=== PATIENT | female | born 1975 | race Caucasian/White ===

== ENCOUNTER 2018-04-30 11:04 | Inpatient (IN) | payer BC, OTHER ==
[2018-04-30] VITALS (25 sets, daily range): BP systolic 100–141; BP diastolic 56–83; PULSE 78–92; RESP 10–23; Ht 160 cm; Wt 53.6 kg
[~2018-04-30] VITALS: Ht 160 cm; Wt 53.6 kg
[~2018-04-30 11:04] MED LIST: CEFAZOLIN 1 GM INJ ONE; DESFLURANE 15 MIN ONE; DEXAMETHASONE 4 MG/ML 5 ML INJ ONE; METOCLOPRAMIDE 10 MG INJ ONE; PROPOFOL 200 MG INJ ONE
[2018-04-30] MEDS ORDERED: NORG1TAB16 PO (11:51)
[2018-04-30] MEDS ORDERED: MIDAZOLAM 1 MG/ML 2 ML INJ ONE (14:48)
[2018-04-30] MEDS ORDERED: FENTAnyl 50 MCG/ML VIAL ONE ×2 (14:48→16:39)
[2018-04-30] MEDS ORDERED: HYDROmorphONE 2 MG/ML SYG ONE (14:56)
[2018-04-30] MEDS ORDERED: PROPOFOL 20 ML ONE (14:57)
[2018-04-30] MEDS ORDERED: LIDOCAINE 2% (SDV) 5 ML INJ ONE (14:57)
[2018-04-30] MEDS ORDERED: ROCURONIUM 50 MG INJ ONE (15:00)
[2018-04-30] MEDS ORDERED: SUCCINYLCHOLINE CHLORIDE 100 MG/5 ML SYG IV ONE (15:00)
[2018-04-30] MEDS ORDERED: ONDANSETRON 4 MG INJ ONE (15:00)
[2018-04-30] MEDS ORDERED: BUPIVACAINE 0.5%/EPI (SDV) 30 ML INJ ONE (15:10)
[2018-04-30] MEDS ORDERED: GELATIN SIZE 100 SPONGE ONE (15:10)
[2018-04-30] MEDS ORDERED: SURGIFOAM POWDER 1 GM KIT ONE (15:10)
[2018-04-30] MEDS ORDERED: THROMBIN 5000 UNIT VIAL ONE ×2 (15:10→17:13)
[2018-04-30] MEDS ORDERED: POLYMYXIN/BACITRACIN 1L IRRIG ONE (15:11)
[2018-04-30] MEDS ORDERED: HEPARIN 1000 UNITS/ML 10 ML INJ ONE (15:11)
--- NOTE | 2018-04-30 15:23 | HPN ---
Date/Time of Note Date/Time of Note DATE: 04/30/18 TIME: 15:23 Interval H&P Admission Note Pt. seen H&P reviewed: No system changes SAMANTA CHRISTINE PA-C Apr 30, 2018 15:23
[2018-04-30] MEDS ORDERED: HYDROmorphONE 0.5 MG/0.5 ML SYG IV PRN (15:30)
[2018-04-30] MEDS ORDERED: ACETAMINOPHEN 325 MG TAB PO PRN (15:30)
[2018-04-30] MEDS ORDERED: BISACODYL 10 MG SUPP PR PRN (15:30)
[2018-04-30] MEDS ORDERED: DIPHENHYDRAMINE 25 MG CAP PO PRN (15:30)
[2018-04-30] MEDS ORDERED: NALOXONE (0.4 MG/ML) INJ IV PRN (15:30)
[2018-04-30] MEDS ORDERED: HYDROCODONE/APAP (10/325) TAB PO PRN ×2 (15:30)
[2018-04-30] MEDS ORDERED: AL HYDROX/MG HYDROX/SIMETH 30 ML CUP PO PRN (15:30)
[2018-04-30] MEDS: CEFAZOLIN 1 GM/50 ML (PMX) 50 ML IVPB SCH (15:30)
[2018-04-30] MEDS ORDERED: METHOCARBAMOL 750 MG TAB PO PRN (15:30)
[2018-04-30] MEDS ORDERED: DIPHENHYDRAMINE 50 MG INJ IV PRN ×2 (15:30→16:00)
[2018-04-30] MEDS ORDERED: CEPASTAT LOZENGE MT PRN (15:30)
--- NOTE | 2018-04-30 15:48 | PREAC ---
Date/Time of Note Date/Time of Note DATE: 04/30/18 TIME: 15:47 Anesthesia Eval and Record Evaluation Time Pre-Procedure Interview DATE: 04/30/18 TIME: 15:47 Age 42 Sex female NPO: 8 hrs Preoperative diagnosis cervical spinal stenosis Planned procedure anterior cervical decompression/fusion Past Medical History Past Medical History: Includes Neuro: Peripheral neuropathy, Other (DDD and cervical spinal stenosis) Surgery & Anesthesia Issues Hx of difficult intubation Meds Anticoagulation: No Beta Sabrina within 24 hr: No Reason Beta Sabrina not given: Pt. not on B-Sabrina Reported Medications Norgestrel-Ethinyl Estradiol (Cryselle-28 Tablet) 1 Each Tablet, 1 EACH PO DAILY, TAB PT HAS HER OWN MED WITH HER 04/30/18 Current Medications Influenza Virus Vaccine Quadrival (Fluzone) 0.5 ml ONCE ONCE IM* ; Start 05/02/18 at 10:00; Stop 05/02/18 at 10:01 Potassium Chloride/Dextrose/ Sod Cl 1,000 ml @ 100 mls/hr Q10H IV ; Start 04/30/18 at 15:23; Status UNV Acetaminophen/ Hydrocodone Bitart ([place] (10/325)) 1 tab Q4H PRN PO PAIN LEVEL 1-5; Start 04/30/18 at 15:30; Status UNV Acetaminophen/ Hydrocodone Bitart ([place] (10/325)) 2 tab Q4H PRN PO PAIN LEVEL 6-10; Start 04/30/18 at 15:30 Hydromorphone HCl (Dilaudid) 0.2 mg Q1H PRN IV BREAKTHROUGH PAIN; Start 04/30/18 at 15:30; Status UNV Cefazolin Sodium 50 ml @ 100 mls/hr Q8H IVPB ; Start 04/30/18 at 15:30; Stop 05/01/18 at 07:59; Status UNV Ondansetron HCl (Zofran Inj) 4 mg Q6H PRN IV NAUSEA AND/OR VOMITING; Start 04/30/18 at 15:30; Status UNV Bisacodyl (Dulcolax Supp) 10 mg DAILY PRN CA CONSTIPATION; Start 04/30/18 at 15:30; Status UNV Docusate Sodium (Colace) 100 mg BID PO ; Start 04/30/18 at 21:00; Status UNV Pantoprazole (Protonix Iv) 40 mg DAILY@06 IV ; Start 05/01/18 at 06:00 Al Hydrox/Mg Hydrox/Simethicone (Mag-Al Plus) 15 ml Q6H PRN PO const; Start 04/30/18 at 15:30; Status UNV Acetaminophen (Tylenol Tab) 650 mg Q4H PRN PO fever; Start 04/30/18 at 15:30; Status UNV Phenol (Cepastat Lozenge) 1 lozenge PRN PRN MT SORE THROAT; Start 04/30/18 at 15:30; Status UNV Diphenhydramine HCl (Benadryl) 25 mg Q6H PRN PO ITCHING; Start 04/30/18 at 15:30; Status UNV Diphenhydramine HCl (Benadryl) 25 mg Q6H PRN IV ITCHING; Start 04/30/18 at 15:30; Status UNV Naloxone HCl (Narcan) 0.2 mg Q2M PRN IV rr; Start 04/30/18 at 15:30; Status UNV Hydromorphone HCl (Dilaudid HYDROTECHNICAL SPECIALIST) HYDROTECHNICAL SPECIALIST to be started in PACU Q4PCA IV ; Start 04/30/18 at 15:30; Status UNV Miscellaneous Information 1. Hold HYDROTECHNICAL SPECIALIST at 1,000... HYDROTECHNICAL SPECIALIST IV ; Start 04/30/18 at 15:30; Status UNV Methocarbamol (Robaxin) 750 mg Q8H PRN PO MUSCLE SPASMS; Start 04/30/18 at 15:30; Status UNV Meds reviewed: Yes Allergies Coded Allergies: No Known Allergy (Unverified , 04/30/18) Allergies Reviewed: Yes Labs/Studies Labs Reviewed: Reviewed by anesthesiologist test: Negative Pre-procedure Exam Last vitals Vital Signs Date Temp Pulse Resp B/P (MAP) Pulse Ox O2 O2 Flow FiO2 Time Delivery Rate 04/30/18 98.4 82 18 116/72 99 Room Air 12:30 (87) Airway: Adequate mouth opening, Adequate thyromental dist Mallampati: Mallampati III Teeth: Normal Lung: Normal Heart: Normal ASA Physical Status ASA physical status: 2 Emergency: None Planned Anesthetic General/MAC: ETT Planned Pain Management Parenteral pain med, Other neuraxial med, Local by surgeon Pre-operative Attestations Prior to commencing anesthesia and surgery, the patient was re-evaluated, there was verification of: *The patient's identity *The results of appropriate recent lab work and preoperative vital signs *The above evaluation not changing prior to induction *Anesthetic plan, risk benefits, alternative and complications discussed with patient/family; questions answered; patient/family understands, accepts and wishes to proceed. STEVAN ROBBINS MD Apr 30, 2018 15:48
[2018-04-30] MEDS ORDERED: HYDROmorphONE 1 MG/5 ML IV SYRINGE IV PRN ×3 (16:00)
[2018-04-30] MEDS ORDERED: ONDANSETRON 4 MG INJ IV PRN (16:00)
[2018-04-30] MEDS ORDERED: IPRATROPIUM (NEB) 0.5 MG/2.5 ML AMP HHN PRN (16:00)
[2018-04-30] MEDS ORDERED: LABETALOL HCL 20MG INJ IV PRN (16:00)
[2018-04-30] MEDS ORDERED: FENTAnyl 50 MCG/ML VIAL IV PRN (16:00)
[2018-04-30] MEDS ORDERED: LEVALBUTEROL (NEB) 1.25 MG/0.5 ML AMP HHN PRN (16:00)
[2018-04-30] MEDS ORDERED: MEPERIDINE 25 MG INJ IV PRN (16:00)
[2018-04-30] MEDS ORDERED: hydrALAzine 20 MG INJ IV PRN (16:00)
[2018-04-30] MEDS ORDERED: METOPROLOL 5 MG INJ ONE (16:39)
--- NOTE | 2018-04-30 19:10 | SIPON ---
Date/Time of Note Date/Time of Note DATE: 04/30/18 TIME: 19:09 Operative Report Preoperative Diagnosis Cervical disc disease and stenosis Postoperative Diagnosis Cervical disc disease and stenosis Operation/Procedure Performed Cervical fusion Surgeon see signature line assistant education director Kamla Rivera Anesthesia: general Estimated blood loss: 10 - 50 ml's Transfusion Required none Specimen Disc Grafts/Implants Plate and cage Complications none CAMERON ROBERSON MD Apr 30, 2018 19:10
[2018-04-30] MEDS: ONDANSETRON 4 MG INJ IV PRN (19:25)
[2018-04-30] MEDS: HYDROmorphONE 0.2 MG/ML PCA IV SCH (19:25)
[2018-04-30] MEDS: FENTAnyl 50 MCG/ML VIAL IV PRN ×2 (19:26→19:50)
--- NOTE | 2018-04-30 19:26 | PAC ---
Date/Time of Note Date/Time of Note DATE: 04/30/18 TIME: 19:26 Post-Anesthesia Notes Post-Anesthesia Note Last documented vital signs Vital Signs Date Temp Pulse Resp B/P (MAP) Pulse Ox O2 O2 Flow FiO2 Time Delivery Rate 04/30/18 98.4 82 18 116/72 99 Room Air 12:30 (87) Activity: WNL Respiratory function: WNL Cardiovascular function: WNL Mental status: Baseline Pain reasonably controlled: Yes Hydration appropriate: Yes Nausea/Vomiting absent: Yes STEVAN ROBBINS MD Apr 30, 2018 19:26
[2018-04-30] MEDS: D5W-0.45 NACL + KCL 20 MEQ 1,000 ML IV SCH (22:21)
--- NOTE | 2018-04-30 22:43 | OPR ---
DATE OF OPERATION: 04/30/2018 PREOPERATIVE DIAGNOSES: C4 to C5, C5 to C6 cervical disk disease and stenosis with right radiculopat hy. POSTOPERATIVE DIAGNOSIS: C4 to C5, C5 to C6 cervical disk disease and stenosis with right radiculopa thy. PROCEDURE: 1. Anterior cervical diskectomy and spinal cord decompression at C4 to C5 and C5 to C6. 2. Partial corpectomy of C4 and C5. 3. Anterior cervical fusion at C4 to C5 and C5 to C6. 4. Placement of intervertebral mechanical device at C4 to C5 and C5 to C6. 5. Placement of separate anterior cervical plate at C4, C5, C6. 6. Allograft. 7. Use of C-arm fluoroscopy with interpretation without radiologist present. 8. Intraoperative neuromonitoring. 9. Use of operative microscope. IMPLANTS: 1. Neurostructure transom 26 mm cervical plate with 12 mm screws. 2. Nexxt Matrixx 16 x 14 x 7 mm at C4 to C5 and C5 to C6. 3. Biosphere. PRIMARY SURGEON: Rolo Hughes MD MILL LABOR SUPERVISOR: Kamla Rivera PA-C NEED FOR TRUCK LEASING MANAGER: During this spinal surgical procedure, my student assistant was used to retract and protect the spinal nerves and dural sac. My student assistant also employed the suction catheters to ev acuate blood from the surgical field to improve visualization of the neural structures. The assistan t was medically necessary to facilitate the completion of the surgery in a safe and expeditious [facility] regulations, as well as hospital bylaws, preclude the use of non-licensed [facility] care personnel, such as operating room technicians, to perform these functions. FINDINGS: Neuromonitoring at the start of the case revealed left C5 amplitude down 10%, right down 2 0%, left C6 down 30%, right 50%, left C7 down 20%, right 10%. At the end of the case, nerve signals returned to normal. The patient had cervical disk disease and posterior osteophytes resulting stenos is at C4 to C5 and C5 to C6. The patient's bone was somewhat soft. ESTIMATED BLOOD LOSS: 50 mL. DRAINS: One. SPECIMENS: C4 to C5 and C5 to C6 disks. COMPLICATIONS OF PROCEDURES: None. ANESTHESIOLOGIST: Dr. Enamorado. TYPE OF ANESTHESIA: General. INDICATIONS FOR PROCEDURE: This 42-year-old patient with cervical disk disease and stenosis resultin g in right-sided cervical radiculopathy. She failed nonoperative measures; therefore, recommend that she undergo the above procedure. Preoperatively, we discussed risks, benefits, and alternatives. S he understood and wished to proceed. DESCRIPTION OF PROCEDURE IN DETAIL: The patient was identified in the preoperative holding area, [facility], taken to the operating room, where she was successfully placed under general ane sthesia. Neuromonitoring leads were placed, sequential compressive devices were applied. Remote int raoperative neuromonitoring was performed by Dr. Hummel from [id number] until 1909 to include SSEP, MEP, and EMG performed by Zyncd. The patient was placed on the operating room table in supine position. Arms were tucked. Neck was extended. Neck was prepped and draped in usual sterile fashi on. Left-sided neck incision was made. Skin was incised. Platysma was incised in line with the ski n incision. I then identified an interval between the sternocleidomastoid and strap muscles, identif ied the anterior spine. I placed a bent spine needle and took lateral film to confirm the correct le vels. Subperiosteal dissected the longus colli musculature. I placed self-retaining retractors and the anesthesiologist deflated and reinflated the endotracheal cuff. Microscope was then brought in. Radical diskectomy was performed at C4 to C5 and C5 to C6. I performed partial corpectomies of C4 a nd C5, removing at least 50% of the vertebral bodies. Under the microscope, I decompressed the poste rior spinal cord and removed the large osteophytes with curettes, Kerrison punches, and high speed bu r. I was able to decompress the spinal cord at both levels as well as the neural foramen. Once this was done, I placed various trials and chose the appropriate graft height. I then took the titanium cage within which I placed allograft and I impacted an intervertebral biomechanical device into the C 4 to C5 and into the C5 to C6 level to complete the anterior fusion at both levels. These cages did not have integral screws and therefore, I placed a separate anterior cervical plate from spanning fro m C4 to C6 with 12 mm screws at each level. Microscope was taken off the field. I locked down each of the screws. At this point, I took AP and lateral images and I was happy with placement of the kasey dware and alignment of the spine. All nerve signals at this point were normal. The wound was irriga elizabeth. Hemostasis was achieved. A subfascial drain was placed and I closed platysma with a #2-0 runni ng Vicryl stitch. I closed subcutaneous tissue with a 3-0 Vicryl stitch. Dermabond was charged ster ile dressing was then applied. The patient was awakened from anesthesia and taken to the recovery ro om in stable condition. Lap, sponge, and instrument counts were correct x2. There were no apparent complications during the procedure. The patient will be admitted to the [facility] for routine postoperative care to include pain co ntrol, neurovascular checks, antibiotics and physical therapy. Dictated By: ROLO HURT/JENIFER Conf#: [id number] DID#: [id number]
[2018-04-30] MEDS: DOCUSATE SODIUM 100 MG CAP PO SCH (22:48)
[2018-05-01] MEDS: CEFAZOLIN 1 GM/50 ML (PMX) 50 ML IVPB SCH ×2 (00:06→07:51)
[2018-05-01 00:35] VITALS: BP 110/67; PULSE 90; RESP 18
[2018-05-01] MEDS: D5W-0.45 NACL + KCL 20 MEQ 1,000 ML IV SCH (01:23)
[2018-05-01] MEDS: HYDROmorphONE 0.2 MG/ML PCA IV SCH (05:13)
[2018-05-01] MEDS ORDERED: PANTOPRAZOLE 40 MG INJ IV SCH (06:00)
[2018-05-01 07:46] VITALS: BP 101/55; PULSE 89; RESP 16
[2018-05-01] MEDS ORDERED: POTASSIUM CHLORIDE (SR) 20 MEQ TAB PO STA (08:30)
[2018-05-01] MEDS: DOCUSATE SODIUM 100 MG CAP PO SCH (08:45)
[2018-05-01] MEDS: ONDANSETRON 4 MG INJ IV PRN (09:30)
--- NOTE | 2018-05-01 10:31 | DS ---
Date/Time of Note Date/Time of Note DATE: 05/01/18 TIME: 10:30 Discharge Summary Admission/Discharge Info Admit Date/Time Apr 30, 2018 at 11:04 Discharge Date/Time May 01 Discharge Diagnosis Cervical stenosis Patient Condition: Good Procedures Cervical fusion Hospital Course Patient was admitted to the [facility] after undergoing a cervical fusion. Her postoperative course was uncomplicated. By postoperative day 1 she was deemed stable for discharge with follow-up arranged with the underside. She will need a bone density examination in the postoperative period. Home Meds Reported Medications Norgestrel-Ethinyl Estradiol (Cryselle-28 Tablet) 1 Each Tablet, 1 EACH PO JUSTIN LY, TAB PT HAS HER OWN MED WITH HER 04/30/18 Primary Care Provider Not On Staff Doctor Pending Labs Laboratory Tests Test 05/01/18 04:25 White Blood Count 16.8 10^3/ul (4.8-10.8) Red Blood Count 3.77 10^6/ul (4.20-5.40) Hemoglobin 10.9 g/dl (12.0-16.0) Hematocrit 33.6 % (37.0-47.0) Mean Corpuscular Volume 89.1 fl (82.0-101.0) Mean Corpuscular Hemoglobin 28.9 pg (29.0-33.0) Mean Corpuscular Hemoglobin Concent 32.4 g/dl (32.0-37.0) Red Cell Distribution Width 14.6 % (11.5-14.5) Platelet Count 380 10^3/UL (140-415) Mean Platelet Volume 9.1 fl (7.4-10.4) Immature Granulocytes % 0.500 % (0.001-0.429) Neutrophils % 87.5 % (39.0-77.0) Lymphocytes % 6.1 % (15.0-51.0) Monocytes % 5.6 % (0.0-11.0) Eosinophils % 0.2 % (0.0-7.0) Basophils % 0.1 % (0.0-2.0) Nucleated Red Blood Cells % 0.0 /100WBC (0.0-0.0) Immature Granulocytes # 0.090 10^3/ul (0.0-0.031) Neutrophils # 14.7 10^3/ul (1.6-7.5) Lymphocytes # 1.0 10^3/ul (0.8-2.9) Monocytes # 1.0 10^3/ul (0.3-0.9) Eosinophils # 0.0 10^3/ul (0.0-0.5) Basophils # 0.0 10^3/ul (0.0-0.1) Nucleated Red Blood Cells # 0.0 10^3/ul (0.0-0.0) Sodium Level 134 mmol/L (135-144) Potassium Level 3.1 mmol/L (3.5-5.1) Chloride Level 99 mmol/L (97-110) Carbon Dioxide Level 29 mmol/L (21-31) Anion Gap 6 (5-13) Blood Urea Nitrogen 9 mg/dl (7-20) Creatinine 0.67 mg/dl (0.44-1.00) Est Glomerular Filtrat Rate mL/min > 60 mL/min (>60) Glucose Level 133 mg/dl (70-220) Calcium Level 8.6 mg/dl (8.4-10.2) Magnesium Level 1.7 mg/dl (1.7-2.5) CAMERON ROBERSON MD May 01, 2018 10:31
== END 2018-05-01 13:17 | disposition home or self-care (01) | DRG 473 ==
LOC: REC 11:04 → MS1 20:00
PROVIDERS: ADMIT Specialist; ATTEND Specialist
PROC: 0RT30ZZ Resection of Cervical Vertebral Disc, Open Approach (ICD-10-PCS; 2018-04-30)
PROC: 4A11X4G Monitoring of Peripheral Nervous Electrical Activity, Intraoperative, External Approach (ICD-10-PCS; 2018-04-30)
PROC: 0RG20A0 Fusion of 2 or more Cervical Vertebral Joints with Interbody Fusion Device, Anterior Approach, Anterior Column, Open Approach (ICD-10-PCS; principal; 2018-04-30 13:00)
DX: M50.121 Cervical disc disorder at C4-C5 level with radiculopathy (principal); M48.02 Spinal stenosis, cervical region
CPT/HCPCS: 72052; 80048; 83735; 85025; 88304; 97116; 97161; C1713; C9113; J0690; J1100; J1170; J1644; J2175; J2250; J2405; J2765; J3010; J3480